=== PATIENT | female | born 1970 | race American Indian/Alaskan Native ===

== ENCOUNTER 2016-12-23 11:54 | Day surgery (SDC) | payer MEDICAID ==
[2016-12-23] MEDS ORDERED: NACL 0.9% 1000 ML 1,000 ML ONE (12:54)
[2016-12-23] MEDS ORDERED: NACL BACTERIOSTATIC INFILTRATI ONE (12:57)
--- NOTE | 2016-12-23 13:02 | Anesthesia Day of Surgery ---
Anesthesia Day of Surgery - Day of Surgery Patient Examined: Yes Patient H&P Reviewed: Yes Patient is NPO: Yes
--- NOTE | 2016-12-23 13:03 | Anesthesia Consultation ---
Anesthesia Consult and Med Hx Date of service: 12/23/16 - Airway Anesthetic Teeth Evaluation: Good ROM Head & Neck: Adequate Mental/Hyoid Distance: Adequate Mallampati Class: Class II Intubation Access Assessment: Probably Good - Pulmonary Exam CTA: Yes (blbs clear) - Cardiac Exam Cardiac Exam: RRR - Pre-Operative Health Status ASA Pre-Surgery Classification: ASA2 Proposed Anesthetic Plan: General - Pulmonary Hx Smoking: No Hx Sleep Apnea: No - Central Nervous System Hx Psychiatric Problems: No - Other Systems Hx Cancer: No
[2016-12-23] MEDS ORDERED: MARCAINE 0.5% INFILTRATI ONE (13:46)
[2016-12-23] MEDS ORDERED: XYLOCAINE 1%/ EPI 1:100,000 INFILTRATI ONE (13:46)
[2016-12-23] MEDS ORDERED: DIPRIVAN 10 MG/ML IV ONE ×2 (13:59→14:28)
[2016-12-23] MEDS ORDERED: XYLOCAINE MPF 2% ONE ×2 (13:59→15:08)
[2016-12-23] MEDS ORDERED: PEPCID IV NR (14:00)
[2016-12-23] MEDS ORDERED: ZEMURON IV ONE (14:00)
[2016-12-23] MEDS ORDERED: NACL 0.9% 1000 ML 1,000 ML IV SCH (14:00)
[2016-12-23] MEDS ORDERED: ANCEF/STERILE WATER 2 GM/20 ML IV NR (14:00)
[2016-12-23] MEDS ORDERED: VERSED IV NR (14:00)
[2016-12-23] MEDS ORDERED: SUBLIMAZE IV PRN (14:00)
[2016-12-23] MEDS ORDERED: DILAUDID IV PRN (14:00)
[2016-12-23] MEDS ORDERED: SUBLIMAZE ONE (14:07)
[2016-12-23] MEDS ORDERED: QUELICIN ONE (14:07)
[2016-12-23] MEDS ORDERED: MARCAINE-EPI/PF 0.25%-1:200,000 INFILTRATI ONE (14:16)
[2016-12-23] MEDS ORDERED: DECADRON ONE (14:37)
[2016-12-23] MEDS ORDERED: ZOFRAN ONE (14:37)
[2016-12-23] MEDS ORDERED: MARCAINE-EPI 0.25%-1:200,000 INFILTRATI ONE (14:38)
[2016-12-23] MEDS ORDERED: NACL 0.9% IR ONE (14:39)
--- NOTE | 2016-12-23 14:43 | Short Stay Summary ---
Short Stay Documentation Date of service: 12/23/16 Narrative H&P: see attached H&P - Allergies and Medications Current Medications: Allergies No Known Allergies Allergy (Verified 12/23/16 13:53) Home Medications Medication Instructions Recorded Confirmed Last Taken Type No Known Home Medications [No 12/18/16 12/18/16 Unknown History Reported Home Medications] Active Medications Cefazolin Sodium (Ancef/Sterile Water 2 Gm/20 Ml) 2 gm IV PREOP NR Stop: 12/23/16 23:59 Famotidine (Pepcid) 20 mg IV PREOP NR Stop: 12/23/16 20:00 Last Admin: 12/23/16 13:57 Dose: 20 mg Fentanyl (Sublimaze) 50 mcg IV Q5MIN PRN PRN Reason: Pain , Severe (7-10) Stop: 12/23/16 16:00 Hydromorphone HCl (Dilaudid) 0.25 mg IV Q10MIN PRN PRN Reason: Pain, Moderate (4-6) Stop: 12/23/16 18:00 Sodium Chloride (Nacl 0.9% 1000 Ml) 1,000 mls @ 100 mls/hr IV DIRECT ELISHA Last Admin: 12/23/16 13:57 Dose: 100 mls/hr Midazolam HCl (Versed) 2 mg IV PREOP NR Stop: 12/23/16 23:59 Last Admin: 12/23/16 14:00 Dose: 2 mg - Brief post op/procedure progress note Date of procedure: 12/23/16 Pre-op diagnosis: chronic draining abdominal fistula Post-op diagnosis: same Procedure: Excision of fistulous tract, wide local debridement and removal of mesh Anesthesia: GETA Findings: sinus tract to mesh and prolene suture. Excised without difficulty Surgeon: TERESITA WOOTEN (Christin WORRELL) Estimated blood loss: minimal Pathology: none Specimen disposition: to lab Condition: stable - Disposition Condition at discharge: Stable Disposition: DISCHARGED TO HOME OR SELFCARE Short Stay Discharge Plan Activity: advance as tolerated Weight Bearing Status: Weight Bear as Tolerated Diet: regular Wound: open to air, keep clean and dry, remove dressing, other (remove packing slowly) Follow up with: TERESITA WOOTEN MD [Staff Physician] - 7 Days
[2016-12-23] MEDS ORDERED: TORADOL ONE (14:50)
[2016-12-23 16:57] VITALS: BP 116/78
--- NOTE | 2016-12-23 20:33 | Operative Report ---
PREOPERATIVE DIAGNOSIS: Chronic draining sinus abdominal wall. POSTOPERATIVE DIAGNOSIS: Chronic draining sinus abdominal wall as well as possible infected mesh. PROCEDURE: Excision of chronic draining sinus right lower debridement and resection of portion of the mesh. SURGEON: Jonatan Jernigan MD [employer] B[employer]GER: Christin Richardson. ANESTHESIA: General anesthesia. ESTIMATED BLOOD LOSS: Minimal. COMPLICATIONS: None. DRAINS: None. SPECIMENS: Soft tissue skin sinus tract and mesh. FINDINGS: Sinus tract leading to the upper aspect of the mesh and a suture. All excised wide local debridement of that area. INDICATIONS: A 46-year-old female who had mesh hernia repair open years past, was found developed a chronic draining sinus to the upper aspect of the mesh and here for debridement. DESCRIPTION OF PROCEDURE: The patient was taken to the OR, placed supine on the operating table. Once general anesthesia was obtained, the anterior abdomen was prepped and draped in sterile fashion. The sinus tract was easily visible. The tract was palpable. A mid incisional line ____ sinus tract down to the location where it started from which was a piece of suture Prolene suture as well as mesh. The mesh itself looked very well incorporated. No obvious mucinous fluid, no obvious infection noted. We locally debride the soft tissue widely in that area and excised approximately 2 cm segment of mesh in the area, although it did not look infected. After adequate hemostasis, we packed it with iodoform gauze. Subcutaneous tissue around was approximated with 3-0 Vicryl and skin was approximated with 4-0 Vicryl and bandage sterilely. The patient tolerated procedure well. [facility]# [id number] DONTA/DEENA
== END 2016-12-23 17:05 | disposition home or self-care (01) ==
LOC: OR 11:54
PROVIDERS: ATTEND Surgery
DX: K63.89 Other specified diseases of intestine (principal); E66.01 Morbid (severe) obesity due to excess calories; Z98.890 Other specified postprocedural states; Z83.49 Family history of other endocrine, nutritional and metabolic diseases; Z83.3 Family history of diabetes mellitus; Z82.49 Family history of ischemic heart disease and other diseases of the circulatory system; Z68.31 Body mass index [BMI] 31.0-31.9, adult
CPT/HCPCS: 11043; 81025; 88304; J0330; J0690; J1100; J1885; J2250; J2405; J2704; J3010; J7030